=== PATIENT | male | born 1985 | race Caucasian/White ===

== ENCOUNTER → 2019-09-11 13:11 | Outpatient (POV) | payer OTHER, SELFPAY | PROVIDERS: Visit Provider Specialist | DX: M79.641 Pain in right hand (principal) | CPT/HCPCS: 95886; 95909 ==

== ENCOUNTER 2021-09-10 14:21 | Emergency (ER) | payer OTHER, SELFPAY ==
[2021-09-10] VITALS (11 sets, daily range): BP systolic 158–207; BP diastolic 96–143; PULSE 85–108; RESP 18–20; TEMP 36.8–37; O2SAT 94–100; BMI 38.0
--- NOTE | 2021-09-10 15:17 | CT_ITS ---
FINAL REPORT CLINICAL HISTORY: abdominal pain LLQ FINDINGS: CT OF THE ABDOMEN AND PELVIS WITH CONTRAST Axial CT images of the abdomen and pelvis were obtained after the administration of intravenous contrast. Coronal reformatted images were also obtained and reviewed.This study was performed with techniques to keep radiation doses as low as reasonably achievable (ALARA). Individualized dose reduction techniques using automated exposure control or adjustment of mA and/or kV according to the patient's size were employed. Abdomen: There are several nodules in the right lung base with the largest measuring up to 11 mm. The heart is normal in size. The liver demonstrates fatty infiltration. The spleen is enlarged up to 14 cm. No adrenal mass is present. The pancreas has an unremarkable appearance. There is significant atrophy and scarring of the left kidney. The aorta is normal in caliber. There is no free fluid or adenopathy. No mass or abnormal fluid collection is seen. Pelvis: The appendix is normal. The urinary bladder is unremarkable. No inflammatory process is seen. There is no evidence of mass or adenopathy. There is no evidence of bowel obstruction. IMPRESSION: Right lung base nodules up to 11 mm. Recommend six-month follow-up chest CT. Fatty infiltration of the liver. Splenomegaly. Reviewed, Interpreted and Dictated by Josue Veliz III, MD Transcribed by Boyd Sands Authenticated by Josue Veliz III, MD on 09/10/2021 04:28:13 PM [facility]
--- NOTE | 2021-09-10 15:17 | HMH.EDABDPAI ---
ED Disposition Clinical Impression: Abdominal pain Qualifiers: Abdominal location: left upper quadrant Qualified Code(s): R10.12 - Left upper quadrant pain Disposition: Home, Self-Care Condition on Discharge: Fair Instructions: DI for Acute Abdominal Pain Additional Instructions: Return to the emergency department for any new or concerning symptoms. Please follow-up with Dr. Snyder, he will also setting up an endoscopy for you. Referrals: Femi Snyder MD [Primary Care Provider] - - Critical Care Critical Care Time: No Attestation: On 09/10/21, the high probability of a clinically significant, sudden or life threatening deterioration of the following system(s) required my full and direct attention, intervention and personal management. The time I documented below is in addition to time spent performing reported procedures but includes the following listed in this critical care notation. Medical Decision Making - Medical Records Medical records reviewed: Yes: I reviewed the patient's medical records. - Luis Inquiry Pt receiving controlled substance: No Vital Signs: 09/10/21 15:05 09/10/21 16:00 09/10/21 16:45 Temperature 98.6 F Temperature Source Oral Pulse Rate 93 H 94 H Pulse Rate [Right Brachial] 98 H Respiratory Rate 18 Blood Pressure Blood Pressure [Right Arm] 193/100 H Blood Pressure Mean Blood Pressure Mean [Right Arm] 131 Blood Pressure Source Blood Pressure Source [Right Arm] Automatic Cuff Blood Pressure Position Blood Pressure Position [Right Arm] Sitting 02 Sat by Pulse Oximetry 95 98 98 Oxygen Delivery Method Room Air 09/10/21 17:00 09/10/21 17:30 09/10/21 18:00 Temperature Temperature Source Pulse Rate 85 92 H 108 H Pulse Rate [Right Brachial] Respiratory Rate 18 Blood Pressure 169/96 H 207/143 H 183/143 H Blood Pressure [Right Arm] Blood Pressure Mean 127 164 164 Blood Pressure Mean [Right Arm] Blood Pressure Source Blood Pressure Source [Right Arm] Blood Pressure Position Blood Pressure Position [Right Arm] 02 Sat by Pulse Oximetry 98 98 94 L Oxygen Delivery Method 09/10/21 18:21 09/10/21 18:30 09/10/21 18:31 Temperature Temperature Source Pulse Rate 104 H 94 H Pulse Rate [Right Brachial] Respiratory Rate 18 18 Blood Pressure 173/126 H 167/111 H 173/143 H Blood Pressure [Right Arm] Blood Pressure Mean 141 131 Blood Pressure Mean [Right Arm] Blood Pressure Source Blood Pressure Source [Right Arm] Blood Pressure Position Blood Pressure Position [Right Arm] 02 Sat by Pulse Oximetry 97 98 Oxygen Delivery Method 09/10/21 18:56 09/10/21 19:20 Temperature 98.2 F Temperature Source Oral Pulse Rate 86 86 Pulse Rate [Right Brachial] Respiratory Rate 18 20 Blood Pressure 158/111 H 158/103 H Blood Pressure [Right Arm] Blood Pressure Mean 136 Blood Pressure Mean [Right Arm] Blood Pressure Source Automatic Cuff Blood Pressure Source [Right Arm] Blood Pressure Position Sitting Blood Pressure Position [Right Arm] 02 Sat by Pulse Oximetry 98 Oxygen Delivery Method Room Air - Lab Data Lab results reviewed: Yes: I reviewed the patient's lab results. Lab Results 09/10/21 15:38: WBC 4.6 L, RBC 4.25 L, Hgb 14.5, Hct 43.1, MCV 101.3 H, MCH 34.0 H, MCHC 33.6, RDW 13.3, Plt Count 193, MPV 7.9, Neut % (Auto) 57.8, Lymph % (Auto) 30.5, Love % (Auto) 4.6, Eos % (Auto) 5.4, Baso % (Auto) 1.6, Neut # (Auto) 2.6, Lymph # (Auto) 1.4, Love # (Auto) 0.2, Eos # (Auto) 0.3, Baso # (Auto) 0.1 09/10/21 15:38: PT 10.9, INR 0.96 09/10/21 15:38: Sodium 136, Potassium 4.3, Chloride 104, Carbon Dioxide 22, Anion Gap 14.3, BUN 6 L, Creatinine 0.60 L, Estimated Creat Clear 295, Estimated GFR 154, Est GFR ( Amer) 187, Glucose 86, Calcium 8.9, Total Bilirubin 0.7, AST 89 H, ALT 62, Alkaline Phosphatase 64, Total Protein 6.9, Albumin 4.1, Globulin 2.8, Albumin/Globulin Ratio 1
[2021-09-10 15:47] LABS: Basophils # 0.1 K/mm3 (0-0.2); Basophils % 1.6 % (0.1-2.0); Eosinophils # 0.3 K/mm3 (0.0-0.4); Eosinophils % 5.4 % (0.1-12.0); Hematocrit 43.1 % (42.0-52.0); Hemoglobin 14.5 g/dL (14.1-18.0); Lymphocytes # 1.4 K/mm3 (0.7-4.5); Lymphocytes % 30.5 % (10-50); Mean Corpuscular HGB Conc 33.6 g/dL (31.8-35.4); Mean Corpuscular Volume 101.3 fl (80-94); Mean Platelet Volume 7.9 fl (7.4-10.4); Monocytes # 0.2 K/mm3 (0.1-1.0); Monocytes % 4.6 % (1.7-9.3); Neutrophils # 2.6 K/mm3 (1.8-7.8); Neutrophils % 57.8 % (37.0-80.0); Platelet Count 193 K/mm3 (142-424); Red Blood Count 4.25 M/mm3 (4.60-6.20); Red Cell Distribution Width 13.3 % (11.5-17.5); White Blood Count 4.6 K/mm3 (4.8-10.8)
[2021-09-10 15:59] LABS: INR 0.96 (0.9-1.1); Prothrombin Time 10.9 seconds (10.1-12.5)
[2021-09-10 16:05] LABS: Alanine Aminotransferase 62 U/L (12-78); Albumin Level 4.1 g/dl (3.5-5.0); Albumin/Globulin Ratio 1.5 (1.1-1.8); Alkaline Phosphatase 64 U/L (38-126); Anion Gap 14.3 mEq/L (5-15); Aspartate Amino Transferase 89 U/L (17-59); Bilirubin,Total 0.7 mg/dl (0.2-1.3); Blood Urea Nitrogen 6 mg/dl (9-20); Calcium 8.9 mg/dl (8.4-10.2); Carbon Dioxide 22 mmol/L (22.0-30.0); Chloride 104 mmol/L (98-107); Creatinine Clearance Estimated 295 mL/min (50-200); Estimated Glomerular Filt Rate 154 ml/min (>60); GFR (African American) 187 ML/MIN (>60); Globulin 2.8 g/dL (1.3-3.2); Glucose 86 mg/dl (74-100); Potassium 4.3 mmoL/L (3.5-5.1); Sodium 136 mmol/L (136-145); Total Protein,Serum 6.9 g/dl (6.3-8.2)
[2021-09-10 18:32] LABS: Acetaminophen < 10 ug/ml (10-30)
[2021-09-10 18:58] LABS: Monoscreen (Rapid) Negative (Negative)
--- NOTE | 2021-09-10 18:58 | PC.NURSE ---
b/p still 158/111 Dr Bernal aware , pt states B/P is always high and he has meds at home , he request to be d/c
== END 2021-09-10 19:24 | disposition home or self-care (01) ==
PROVIDERS: Emergency Provider Emergency Medicine; PCP Family Medicine
DX: R10.12 Left upper quadrant pain (principal); I10 Essential (primary) hypertension
CPT/HCPCS: 74177; 80053; 80329; 85025; 85610; 86318; 96374; 96375; 96376; 99282; J2405; Q9967

== ENCOUNTER → 2021-09-22 12:18 | Outpatient (CLI) | payer OTHER, SELFPAY ==
--- NOTE | 2021-09-22 12:23 | US_ITS ---
FINAL REPORT TECHNIQUE: Ultrasound images of the kidneys and bladder were obtained. CLINICAL HISTORY: LT FLANK PAIN-- recent ct showed atrophied kidney lt side FINDINGS: The right kidney measures 13.11 cm in length. There is no hydronephrosis or mass the right kidney. The left kidney measures 6 cm in length. There is significant atrophy with renal scarring. No flow is identified. Findings may be due to chronic left renal artery occlusion. IMPRESSION: Significant left renal atrophy without blood flow identified. Findings may be due to chronic left renal artery occlusion. Reviewed, Interpreted and Dictated by Josue Veliz III, MD Transcribed by Judy Smith Authenticated by Josue Veliz III, MD on 09/22/2021 01:57:17 PM [facility]
== END ==
PROVIDERS: PCP Family Medicine; Visit Provider Family Medicine
DX: R10.9 Unspecified abdominal pain (principal)
CPT/HCPCS: 76770

== ENCOUNTER → 2021-09-24 15:59 | Outpatient (CLI) | payer OTHER, SELFPAY | PROVIDERS: PCP Family Medicine; Visit Provider Surgery | DX: U07.1 COVID-19 (principal) | CPT/HCPCS: C9803; U0003; U0005 ==

== ENCOUNTER 2021-10-27 09:38 | Day surgery (SDC) | payer OTHER, SELFPAY ==
[2021-10-23 15:19] VITALS: BMI 35.9
[2021-10-27 09:48] VITALS: BP 160/114; PULSE 110; RESP 18; TEMP 36.7; O2SAT 98
[2021-10-27 10:25] VITALS: BP 150/103; PULSE 106; RESP 16; TEMP 36.8; O2SAT 99
--- NOTE | 2021-10-27 10:30 | P.OP_ITS ---
Date of procedure: 10/27/21 Pre-op Diagnosis:: Left flank pain, history of atrophic left kidney Post-op Diagnosis:: Same Procedure performed:: Cystoscopy Surgeon:: Prakash Hilliard MD Anesthesia: local Estimated blood loss (mL): 0 Clinical Note:: Patient is a 36-year-old white male with history of some intermittent left-sided flank pain that he experiences mainly at night. He states once he gets up to void the pain is relieved. CT scan has shown an atrophic left kidney with evidence of renal scarring. He presents for cystoscopic evaluation to evaluate for possible reflux. Operative findings:: Cystoscopy reveals no mucosal bladder abnormalities, trabeculation, cellules or diverticula. The ureteral orifices in their normal anatomic position. Clear efflux of urine was noted from the right orifice. No efflux of urine was noted from the left 1. Left ureteral orifice is in the normal location on the trigone and appears to be of relatively normal configuration and shape. The right ureteral orifice is abnormal with figuration and shape. Patient tolerated procedure well we discussed the findings. We discussed proceeding with a voidin g cystourethrogram to again verify that there is no reflux. Operative note:: Patient taken to the cystoscopy suite after informed consent was obtained. On the stretcher he was prepped and draped in the standard surgical fashion and 2% lidocaine placed into the urethra and clamped for 5 minutes. After 5 minutes the flexible cystoscope introduced into the urethral meatus. Passed to the prostatic urethra which showed no evidence of obstruction. The bladder was entered and examined in a systematic fashion. There was no evidence of mucosal abnormalities, stones, trabeculation or cellules. The ureteral orifices in their normal anatomic position on the trigone. Right ureteral orifice appeared to be of normal shape and configuration with clear efflux of urine. The left ureteral orifice was a little more open than the right but was of a slitlike configuration. The scope removed patient tolerated procedure well. We discussed the findings and we will proceed with a voiding cystourethrogram again assess for possible reflux even though the left ureteral orifice is not a classic appearing refluxing orifice. Condition: stable Disposition: same day Specimens:: None Complications:: None
[2021-10-27 10:35] VITALS: BP 150/103; PULSE 106; RESP 16; TEMP 36.8; O2SAT 99
== END 2021-10-27 10:35 | disposition home or self-care (01) ==
LOC: OUTP 09:39
PROVIDERS: PCP Family Medicine; Visit Provider Urology
PROC: (CPT 52000; principal; 2021-10-27 10:30)
DX: N26.1 Atrophy of kidney (terminal) (principal); R10.84 Generalized abdominal pain; J45.909 Unspecified asthma, uncomplicated; I10 Essential (primary) hypertension; Z79.899 Other long term (current) drug therapy; Z72.0 Tobacco use
CPT/HCPCS: 52000

== ENCOUNTER 2021-10-31 12:17 | Day surgery (SDC) | payer OTHER, SELFPAY ==
[2021-09-23 13:37] VITALS: BMI 34.4
[2021-10-28 10:08] VITALS: BMI 35.9
[2021-10-31 12:28] VITALS: BP 152/93; PULSE 124; RESP 18; TEMP 37.2; O2SAT 99
--- NOTE | 2021-10-31 12:45 | HMH.ANESCL ---
[facility] Anesthesia Checklist - Patient Identification Patient Identification: Arm Band - Structural Data Admitted From: Home Planned Operative Procedure/s: Colonoscopy Consent for Planned Operative Procedure(s) Verified: Yes - NPO Status Verified Time NPO: 09:00 (Prep) - Additional verifications Anesthesia Reactions: No Hx Blood Transfusions: No Blood Transfusion Reaction: No - Airway Assessment C-Spine Mobility Assessed: Yes TMJ Mobility Assessed: Yes Dentition: Poor Dentition - Neurological Assessment Level of Consciousness: Awake Hx Seizures: No Numbness or tingling in extremities: No - Anesthesia Plan Anesthesia Risk discussed: Yes Anesthesia Plan: Verified ASA Class: II Anesthesia Type: MAC [facility] History I have reviewed the patient's past medical history: Yes Medical History: Reports:: Asthma, Gastroesophageal Reflux Disease(GERD), Hypertension, Renal Disease Denies:: Cancer, Diabetes Mellitus Type 1, Diabetes Mellitus Type 2, Internal Pacemaker, MRSA, Seizures *Have you ever received a pneumonia vaccine?: No *Have you received a flu vaccine this season?: No Other Medical History: Denies: Blood Transfusion Reaction Anesthesia experience/problems:: None Laterality Cases: Right: Carpal Tunnel Release Other Surgeries: Yes: No Previous Surgery. No: Pacemaker Amputation: No Fractures: Yes (r ankle) - *Social History Last grade of school completed: High school graduate Smoking Status: Current every day smoker Tobacco Type: cigarettes # Packs/Day (cigarettes): 1 Alcohol Intake: never Alcohol Intake Frequency:: 3 or more drinks per day Substance Use Type: denies use *Occupational Status:: employed Housing: house Household Members: spouse, family *Travel in the last 8 weeks: None Family Hx:: Heart Attack
[2021-10-31 14:02] VITALS: O2SAT 99
--- NOTE | 2021-10-31 14:33 | HMH.SCOPE ---
- Procedure: Date: 10/31/21 Patient Date of :: 1985 Procedure Performed:: Total colonoscopy to terminal ileum with polypectomy by snare x2 Indications:: Patient is a 36-year-old male. He is scheduled for colonoscopy for rectal bleeding referred by Dr. Ayo Snyder. Couple months ago patient had been having some intermittent relatively fresh bright red blood per rectum. This did not occur with every bowel movement. He had presented to his primary care provider's office and was sent to the emergency department due to his symptoms. He was seen and evaluated in the emergency department on 09/10/2021. He did have a CT scan done which was negative for any acute GI pathology. He did have findings of right lung base nodules measuring up to 11 mm, fatty infiltration of the liver, splenomegaly. Radiology recommended 6-month follow-up CT scan of the chest. Patient is undergoing urology evaluation for atrophic left kidney with left-sided pain. He states that his rectal bleeding has resolved at this time. Performing Provider:: Josue Raines MD Referring Provider:: Ayo Snyder MD Sedation:: MAC sedation Procedure:: Patient was taken to endoscopy procedure room. He was positioned in left lateral decubitus position. Adequate intravenous sedation was achieved with anesthesia titration of propofol. Digital examination was performed which revealed minimal hemorrhoids. Variable stiffness Olympus colonoscope was inserted via the anus. Careful evaluation of the anal canal revealed some minor hemorrhoidal irritation. Colonoscope was advanced to the cecum. Colonic preparation was good and visualization was good. Ileocecal valve and appendiceal orifice were clearly identified. Colonoscope was advanced into the terminal ileum which appeared grossly normal. Colonoscope was slowly withdrawn through the colon with careful surveillance. Of note, in the cecum there was a sessile approximately 6 mm somewhat irregular polyp removed with cold snare. Colonoscope was withdrawn through the colon with careful surveillance. He did have a few scattered diverticuli. In the descending colon there was a small polyp removed with cold snare with residual polyp removed using biopsy forceps. Colonoscope was withdrawn to the rectum and retroflexion revealed minimal internal hemorrhoids. Colonoscope was withdrawn. Findings:: Sessile cecal polyp Small descending colon polyp Rare scattered diverticulosis Minimal hemorrhoids Recommendations:: Source of resolved rectal bleeding likely from hemorrhoids. Treat expectantly. Repeat colonoscopy 3 to 5 years pending pathology of the polyps. Complications:: None Estimated blood obtained (mL): 2
[2021-10-31 14:34] VITALS: BP 127/71; PULSE 96; RESP 14; TEMP 36.4; O2SAT 91
[2021-10-31 14:44] VITALS: BP 128/68; PULSE 98; RESP 16; O2SAT 96
[2021-10-31 14:54] VITALS: BP 121/74; PULSE 96; RESP 16; O2SAT 98
[2021-10-31 15:04] VITALS: BP 134/72; PULSE 63; RESP 18; O2SAT 99
== END 2021-10-31 15:04 | disposition home or self-care (01) ==
LOC: OUTP 12:17
PROVIDERS: PCP Family Medicine; Visit Provider Surgery
PROC: 0DJD8ZZ Inspection of Lower Intestinal Tract, Via Natural or Artificial Opening Endoscopic (ICD-10-PCS; CPT 45385; principal; 2021-10-31 13:30)
DX: K63.5 Polyp of colon (principal); K57.30 Diverticulosis of large intestine without perforation or abscess without bleeding; K64.9 Unspecified hemorrhoids; J45.909 Unspecified asthma, uncomplicated; K21.9 Gastro-esophageal reflux disease without esophagitis; I10 Essential (primary) hypertension; N28.9 Disorder of kidney and ureter, unspecified; Z72.0 Tobacco use; Z82.3 Family history of stroke; Z79.899 Other long term (current) drug therapy
CPT/HCPCS: 45385; J2704

== ENCOUNTER → 2021-11-03 08:37 | Outpatient (CLI) | payer OTHER, SELFPAY ==
--- NOTE | 2021-11-03 08:40 | FL_ITS ---
FINAL REPORT CLINICAL HISTORY: back pain..lt kidney not working...500 ml of cystografin to fill bladder..2.00 fluoro time FINDINGS: CYSTOGRAM HISTORY: Left renal failure. Back pain. PROCEDURE: 500 mL Contrast was introduced in a retrograde fashion into the urinary bladder by gravity drip. Spot and overhead films were obtained. FINDINGS: Director Voice film is normal. The urinary bladder distends appropriately. There is no reflux of contrast. No extravasation of contrast was identified to indicate leak. the patient was unable to void on the fluoroscopy table. FLUOROSCOPY TIME: 2.0 minutes. 7 radiographs were obtained. IMPRESSION: Normal cystogram. The patient was unable to void on the fluoroscopy table and therefore voiding urethrogram was not able to be obtained. Films reviewed , interpreted and dictated by Dr. Veliz. Transcribed by John Stephens PA-C. Reviewed, Interpreted and Dictated by Josue Veliz III, MD Transcribed by JOSE Horta Authenticated by Josue Veliz III, MD on 11/03/2021 11:12:21 AM [facility]
== END ==
PROVIDERS: PCP Family Medicine; Visit Provider Urology
DX: N26.1 Atrophy of kidney (terminal) (principal); M54.9 Dorsalgia, unspecified
CPT/HCPCS: 74455

== ENCOUNTER → 2021-12-01 12:55 | Outpatient (POV) | payer OTHER, SELFPAY ==
[2021-12-01 13:07] VITALS: BP 161/109; PULSE 112; RESP 18; TEMP 36.8; O2SAT 96; BMI 35.1
--- NOTE | 2021-12-01 13:42 | HMH.PMCON ---
Assessment and Plan (1) Left flank pain Status: Acute Category: Medical Code(s): R10.9 - Unspecified abdominal pain - Assessment and plan all Dx Assessment and Plan for all problems:: Patient is referred to us for management of left flank pain. Etiology is unknown at this point. Patient is tender to palpation around the lateral ninth and 10th rib. His recent CT shows splenomegaly and significant scarring and atrophy of the left kidney. Urology states that the pain may not be urologic in nature. I discussed with the patient that we can certainly try to do some intercostal nerve blocks at ninth and 10th ribs. However, this would only mask the pain. Something might be causing this pain specially with his age. We will refer the patient to general surgery for further evaluation. Patient is also being managed with tramadol and gabapentin that is prescribed an outside clinic. We will not continue these medications. Patient has been instructed to contact the clinic with any concerns before the next appointment. Dr. Patel has reviewed this note and agrees with this plan of care. This note was dictated using voice recognition software and make contain errors or omissions. HPI - Data of Consult Patient: new to practice Consult date: 12/01/21 Requesting Physician: JOSE Montes De Oca - Consult Narrative Reason for consult: Left flank pain History of present illness: Mr. Rey is a 36 year old male who presents today with worsening left flank pain/rib pain. Patient is referred by Dr. Hilliard. Thank you for the referral. Patient presents today with left flank pain/rib pain. Patient denies any recent falls or traumas. Patient states that he has been having this pain around his left flank since August. He has been complaining of intermittent diarrhea in the last 3 months. He had a colonoscopy recently that is positive for some polyps. He was referred to urology because his abdominal CT shows splenomegaly and significant atrophy and scarring of the left kidney. He states that he gets left sided flank pain whenever he is using the bathroom. Urology says that he does not think that the patient's pain is urologic in nature. He does not think doing a left nephrectomy would help with his discomfort. His recent ultrasound shows little to no blood flow to his left kidney. Pain might be related to renal artery occlusion. Patient states that he would notice some swelling on his left flank from time to time. Patient also has low back pain. He has been to [facility] for treatment of this. He had a spinal cord stimulator placed that helped him significantly. This was explanted because this was affecting his work. Patient rates his pain today as 6 out of 10. CC: JOSE Montes De Oca [facility] History I have reviewed the patient's past medical history: Yes Medical History: Reports:: Asthma, Gastroesophageal Reflux Disease(GERD), Hypertension, Renal Disease Denies:: Cancer, Diabetes Mellitus Type 1, Diabetes Mellitus Type 2, Internal Pacemaker, MRSA, Seizures *Have you ever received a pneumonia vaccine?: No *Have you received a flu vaccine this season?: No Other Medical History: Denies: Blood Transfusion Reaction Laterality Cases: Right: Carpal Tunnel Release Other Surgeries: Yes: No Previous Surgery. No: Pacemaker Amputation: No Fractures: Yes (r ankle) - *Social History Smoking Status: Current every day smoker Tobacco Type: cigarettes # Packs/Day (cigarettes): 1 Alcohol Intake: current Alcohol Intake Frequency:: a few times a week Substance Use Type: denies use *Occupational Status:: employed Housing: house Household Members: spouse *Travel in the last 8 weeks: None Family Hx:: Heart Attack Review of Systems - Review of Systems Review of Systems: General: No recent weight changes, no fever, no sleep disturbances Respiratory: No cough, no shortness of air, no recurring pulmonary infections Cardiovascular/peripheral vascular: No c
== END ==
PROVIDERS: Visit Provider Student in an Organized Health Care Education/Training Program
DX: R10.9 Unspecified abdominal pain (principal)
CPT/HCPCS: 99202; G0463

== ENCOUNTER → 2021-12-08 10:33 | Outpatient (POV) | payer OTHER, SELFPAY ==
[2021-12-08 10:46] VITALS: BP 178/112; PULSE 89; RESP 18; TEMP 36.7; O2SAT 100; BMI 35.9
--- NOTE | 2021-12-08 11:22 | HMH.PAINSOAP ---
[facility] Pain Management SOAP Note Subjective:: Patient is a pleasant 36-year-old male who presents today for follow-up. Patient has a chief complaint of left flank/left upper quadrant pain, etiology is unknown. His abdominal CT shows splenomegaly and significant atrophy and scarring of the left kidney. He was referred to urology for his kidney. Urology does not think that the patient's pain is urologic in nature. The urologist does not think that a left nephrectomy would help with his discomfort. Pain during bowel movements, no pain when he urinates. when I last saw this patient, I discussed with him that we can certainly do a peripheral nerve block but this would mask any underlying issues. I referred him to a general surgeon here in [place]. The general surgeon says that he does not manage any spleen issues. He states that his pain is about the same. He has tried tramadol and lidocaine patches with minimal relief of symptoms. He rates his pain a 6 out of [address] [facility] #[id number] with an active morphine equivalent of 10. Additionally, patient also has low back pain. He has been to [facility] for treatment in the past. He had a spinal cord stimulator placed that helped him significantly. This was explanted because it was affecting his work. Review of Systems: General: No recent weight changes, no fever, no sleep disturbances Respiratory: No cough, no shortness of air, no recurring pulmonary infections Cardiovascular/peripheral vascular: No chest pain, no palpitations, no edema, no shortness of breath Gastrointestinal: No new onset incontinence, normal bowel movements reported; left upper quadrant pain Genitourinary: No new onset incontinence Psychiatric: [Normal mood/affect] Neurological: [Denies weakness in extremities], [denies balance issues] Objective:: Physical Exam: General: Alert and oriented x3, no acute distress, pleasant and cooperative, [on room air] Lungs: Respirations even and unlabored, symmetrical chest expansion Eyes: PERRL GI: Tender to palpation around the left upper quadrant. There is a noticeable bulging just underneath the left 10th rib. There is no erythema. +BS Musculoskeletal: Flexion and extension of [] [spine] somewhat guarded secondary to pain, [antalgic gait noted] Neurological: Speech clear, no gross sensory deficit Assessment:: Left upper quadrant pain/left flank pain Splenomegaly Plan:: Patient presents today with no change of left upper quadrant pain. He was denied by the general surgeon here in town and wants to be referred to a different clinic. Patient has tried lidocaine patches and tramadol with minimal relief of symptoms. These medications do help with his low back pain. Denies any change in appetite. In the meantime, we will schedule the patient for an intercostal/peripheral nerve block just below the 10th rib. Risks and benefits of the procedure have been explained to the patient. Patient would like to proceed with the procedure. Patient has been instructed to contact the clinic with any concerns before the next appointment. Dr. Patel has reviewed this note and agrees with this plan of care. This note was dictated using voice recognition software and make contain errors or omissions. [facility] History Medical History: Reports:: Asthma, Gastroesophageal Reflux Disease(GERD), Hypertension, Renal Disease Denies:: Cancer, Diabetes Mellitus Type 1, Diabetes Mellitus Type 2, Internal Pacemaker, MRSA, Seizures *Have you ever received a pneumonia vaccine?: No *Have you received a flu vaccine this season?: No Other Medical History: Denies: Blood Transfusion Reaction Laterality Cases: Right: Carpal Tunnel Release Other Surgeries: Yes: No Previous Surgery. No: Pacemaker Amputation: No Fractures: Yes (r ankle) - *Social History Smoking Status: Current every day smoker Tobacco Type: cigarettes # Packs/Day (cigarettes): 1 Alcohol Intake: current Alcohol Intake Frequency:: a few times a
== END ==
PROVIDERS: Visit Provider Student in an Organized Health Care Education/Training Program
DX: R10.12 Left upper quadrant pain (principal); R16.1 Splenomegaly, not elsewhere classified
CPT/HCPCS: 99212; G0463

== ENCOUNTER 2021-12-12 08:52 | Day surgery (SDC) | payer OTHER, SELFPAY ==
[2021-12-12 08:57] VITALS: BP 154/102; BP 162/89; PULSE 82; PULSE 84; RESP 18; O2SAT 97
[2021-12-12 09:01] VITALS: BP 163/98; PULSE 87; RESP 18; TEMP 36.8; O2SAT 99; BMI 35.9
--- NOTE | 2021-12-12 09:16 | HMH.PMPROC ---
- Procedure Date: 12/12/21 Time: 09:16 Anesthesiologist:: Jae Benjamin CRNA Complications:: None Pre-procedure Diagnosis:: Splenomegaly. Left kidney disease. Post-procedure Diagnosis:: Same Indications for Procedure:: This patient is a pleasant 36-year-old who has been deeply involved with urology over the last 3 months due to left kidney function declining and splenomegaly. He is having severe left flank pain. This is secondary to his splenomegaly. Today presents to our clinic for a field block over the left flank area where he is having some neuropathic type pain. He has tried some lidocaine patches with minimal relief. He is taking tramadol for pain at times. He will follow-up in [place] with urology next month. Procedure Details:: Details of the procedure were explained to the patient. The patient was taken to the procedure room placed in the sitting position on the fluoroscopy table. The area over the left flank was cleaned using chlorhexidine as a cleansing solution. At this time using a 1-1/2 inch 25-gauge needle in a circular fashion covering about 15 to 20 cm of the left flank 1 to 2 cc injections were given of an injection containing 0.25% Marcaine and 1% lidocaine with 40 mg of Depo-Medrol and 12 cc. She tolerated the procedure without difficulty. There were no complications. Plan and Disposition:: Patient was discharged home without incident. He will return to see us on an as-needed basis.
[2021-12-12 09:22] VITALS: BP 141/98; PULSE 77; RESP 20; O2SAT 97
== END 2021-12-12 09:23 | disposition home or self-care (01) ==
LOC: SC.PAINP 08:53
PROVIDERS: PCP Family Medicine; Visit Provider Nurse Anesthetist, Certified Registered
DX: G62.9 Polyneuropathy, unspecified (principal); R16.1 Splenomegaly, not elsewhere classified; N28.9 Disorder of kidney and ureter, unspecified; J45.909 Unspecified asthma, uncomplicated; K21.9 Gastro-esophageal reflux disease without esophagitis; E78.5 Hyperlipidemia, unspecified; Z72.0 Tobacco use
CPT/HCPCS: 64450; J1040

== ENCOUNTER → 2021-12-23 13:40 | Outpatient (POV) | payer OTHER, SELFPAY | PROVIDERS: Visit Provider Dermatology | DX: Z00.00 Encounter for general adult medical examination without abnormal findings (principal) ==

== ENCOUNTER → 2022-01-09 13:40 | Outpatient (CLI) | payer OTHER, SELFPAY | PROVIDERS: PCP Family Medicine; Visit Provider Family Medicine | DX: Z20.822 Contact with and (suspected) exposure to COVID-19 (principal) | CPT/HCPCS: C9803; U0003; U0005 ==

== ENCOUNTER → 2022-01-12 13:26 | Outpatient (POV) | payer OTHER, SELFPAY ==
[2022-01-12 13:39] VITALS: BP 175/108; PULSE 88; RESP 18; TEMP 36.9; O2SAT 98; BMI 35.9
--- NOTE | 2022-01-12 15:43 | HMH.PAINSOAP ---
[facility] Pain Management SOAP Note Subjective:: Patient is a pleasant 36-year-old male who presents today for follow-up after a peripheral block around the left flank on December 12, 2021. We have been managing this patient for left flank/left upper quadrant pain, etiology is unknown. After his procedure, patient had significant relief of 80 to 90%. He does still have some pain around his left back. When this patient was referred to us, he was having significant left flank/left upper quadrant pain. His abdominal CT shows splenomegaly and significant atrophy and scarring of the left kidney. He was referred to urology for his kidney. Urology does not think that the patient's pain is urologic in nature. The urologist does not think that a left nephrectomy would help with his discomfort. Patient does have pain during bowel movements but no pain when he urinates. I referred the patient to a general surgeon here in [place] for possible evaluation of his splenomegaly. I thought that the patient may need a splenectomy since there is an obvious bulging of his spleen. He was told that the general surgery here in [place] does not do any splenectomy. I then referred the patient to [facility] for further evaluation. Today, patient states that he was referred to another urologist who may want to proceed with nephrectomy. He does have some CVA tenderness. Of note, patient has tried tramadol and lidocaine patches with minimal relief of symptoms. He rates his pain today as 5 out of 10. Additionally, patient also has low back pain. He has been to [facility] for treatment in the past. He had a spinal cord stimulator placed that helped him significantly. This was then explanted because it was affecting his work. Review of Systems: General: No recent weight changes, no fever, no sleep disturbances Respiratory: No cough, no shortness of air, no recurring pulmonary infections Cardiovascular/peripheral vascular: No chest pain, no palpitations, no edema, no shortness of breath Gastrointestinal: No new onset incontinence, normal bowel movements reported Genitourinary: No new onset incontinence Musculoskeletal: Low back pain Psychiatric: [Normal mood/affect] Neurological: [Denies weakness in extremities], [denies balance issues] Objective:: Physical Exam: General: Alert and oriented x3, no acute distress, pleasant and cooperative Lungs: Respirations even and unlabored, symmetrical chest expansion Eyes: PERRL GI: Patient still has some bulging around his left upper quadrant. This is not tender to palpation. Musculoskeletal: Flexion and extension of lumbar [spine] somewhat guarded secondary to pain, [antalgic gait noted]; tender to palpation around the left sided thoracic paraspinous. Neurological: Speech clear, no gross sensory deficit Assessment:: Splenomegaly, left upper quadrant pain/left flank pain Plan:: Patient had significant relief after the peripheral blocks around the left upper quadrant/left flank area. Patient is following up with urology for possible nephrectomy. We will follow-up with this patient as needed. Patient has been instructed to contact the clinic with any concerns before the next appointment. Dr. Patel has reviewed this note and agrees with this plan of care. This note was dictated using voice recognition software and make contain errors or omissions. [facility] History Medical History: Reports:: Asthma, Gastroesophageal Reflux Disease(GERD), Hyperlipidemia, Hypertension, Renal Disease Denies:: Cancer, Diabetes Mellitus Type 1, Diabetes Mellitus Type 2, Internal Pacemaker, MRSA, Seizures *Have you ever received a pneumonia vaccine?: No *Have you received a flu vaccine this season?: No Other Medical History: Denies: Blood Transfusion Reaction Laterality Cases: Right: Carpal Tunnel Release Other Surgeries: Yes: No Previous Surgery. No: Pacemaker Amputation: No Fractures: Yes (r ankle) - *Social History Smoking Status: Current
== END ==
PROVIDERS: Visit Provider Student in an Organized Health Care Education/Training Program
DX: R16.1 Splenomegaly, not elsewhere classified (principal)
CPT/HCPCS: 99212; G0463

== ENCOUNTER → 2022-06-25 13:29 | Outpatient (CLI) | payer OTHER, SELFPAY ==
--- NOTE | 2022-06-25 13:32 | XR_ITS ---
FINAL REPORT CLINICAL HISTORY: RT ELBOW PAIN FINDINGS: RIGHT ELBOW 3 views were obtained. There is no acute fracture or dislocation. There is no joint effusion. The joint spaces are intact. There is no soft tissue abnormality. IMPRESSION: No acute process. Reviewed, Interpreted and Dictated by Josue Veliz III, MD Transcribed by Boyd Sands Authenticated and [facility]
== END ==
PROVIDERS: PCP Family Medicine; Visit Provider Family Medicine
DX: M25.521 Pain in right elbow (principal)
CPT/HCPCS: 73080

== ENCOUNTER → 2022-06-30 16:36 | Outpatient (CLI) | payer OTHER, SELFPAY | PROVIDERS: PCP Family Medicine; Visit Provider Family Medicine | DX: G47.33 Obstructive sleep apnea (adult) (pediatric) (principal); R06.83 Snoring; R53.83 Other fatigue | CPT/HCPCS: 95806 ==

== ENCOUNTER → 2022-12-23 09:17 | Outpatient (CLI) | payer OTHER, SELFPAY ==
--- NOTE | 2022-12-23 09:29 | US_ITS ---
FINAL REPORT TECHNIQUE: Ultrasound images of the kidneys and bladder were obtained. CLINICAL HISTORY: RENAL ATROPHY COMPARISON: 09/22/2021 FINDINGS: The right kidney is enlarged and measures 13.6 cm in length. The left kidney is atrophic and measures 5.2 cm in length. There is a 1.2 cm hypoechoic focus within the left kidney which is indeterminate and may represent complex cyst. No hydronephrosis bilaterally. IMPRESSION: Atrophic left kidney with compensatory hypertrophy of the right kidney. 1.2 cm indeterminate nodule left kidney. Pre and post infusion CT may be of value. Reviewed, Interpreted and Dictated by Dirk Guo MD Transcribed by Aide Boss Authenticated and [facility]
== END ==
PROVIDERS: PCP Specialist; Visit Provider Family Medicine
DX: N26.1 Atrophy of kidney (terminal) (principal)
CPT/HCPCS: 76770

== ENCOUNTER → 2023-04-07 13:44 | Outpatient (POV) | payer OTHER, SELFPAY ==
[2023-04-07 15:29] VITALS: BP 152/96; PULSE 102; RESP 20; O2SAT 95; BMI 33.5
--- NOTE | 2023-04-07 16:42 | EXP.PAIN.OV ---
HPI Data of Consult Patient: new to practice Consult date: 04/07/23 Requesting Physician: Christine Valentine APRN Primary Care Provider: Femi Snyder MD Consult Narrative Reason for consult: Low back pain left-sided History of present illness: Mr. Rey is a 37 year old male who presents today as a new patient. He is a referral from Dr. Snyder's office. Today he rates his pain a 5 out of 10. Patient states he has been experiencing more pain in his low back along the left side. Patient was previously a patient of ours last year around December where he did get injections into the left abdomen and that he had resolution of his pain at this area. Patient states that the pain has since moved further back around his ribs. He does describe this as a sharp knocking you down sensation with bilateral leg numbness that its been going on for years. Patient does state that he also has left hip pain. He says that the main reason he came to us today was to see about the left-sided rib/low back pain because it wakes him up in the middle of the night and causes significant vomiting and pain. Patient has recently had a left abdominal ultrasound which did have findings concerning on his kidneys. He states he is being sent back to Dr. Mullen and has a follow-up appointment with his primary care doctor on Wednesday. Patient does use [id number] medications such as Tylenol along with tramadol 50 mg twice a day and gabapentin 800 mg 3 times a day from Dr. Snyder's office. Patient denies any side effects from this medication however states it only takes the edge off. Patient also uses Flector patches with no additional relief. Patient has tried heat and ice. He states he will not do physical therapy or chiropractor therapy due to worsening pain. He denies any previous lumbar imaging his Luis is [phone]. Its been reviewed and appropriate. CC: Christine Valentine APRN [facility] Disclaimer: The information contained in this section may have been updated after the patient was seen, as this information can be updated by other users. Medical History (Updated 04/07/23 @ 16:49 by Christine Valentine APRN) Asthma Closed right ankle fracture HTN (hypertension) Right carpal tunnel syndrome Scheuermanns disease Family History (Updated 04/07/23 @ 14:30 by Staci Pradhan RN) Other Heart problem Social History (Updated 04/07/23 @ 14:31 by Staci Pradhan RN) Smoking Status: Current every day smoker tobacco type: cigarettes packs per day: 1 alcohol intake: current substance use type: denies use current occupational status: other Travel in the last 8 weeks: None household members: spouse housing: house marital status: current occupation: its current occupational exposures/hazards: No caffeine: Yes Review of Systems Review of Systems Review of systems:: pertinent systems reviewed and negative unless documented below Review of systems (narrative): Review of Systems: General: No recent weight changes, no fever, no sleep disturbances Respiratory: No cough, no shortness of air, no recurring pulmonary infections Cardiovascular/peripheral vascular: No chest pain, no palpitations, no edema, no shortness of breath Gastrointestinal: No new onset incontinence, normal bowel movements reported Genitourinary: No new onset incontinence Musculoskeletal: Left-sided low back pain Psychiatric: [Normal mood/affect] Neurological: [Denies weakness in extremities], [denies balance issues] Meds Home Medications and Allergies Home Medications Medication Instructions Recorded Confirmed Type gabapentin 800 mg tablet 800 mg PO TID Pain 09/10/21 09/03/22 History lansoprazole 30 mg delayed 30 mg PO DAILY GERD 09/10/21 09/03/22 History release,disintegrating tablet triamterene 37.5 1 each PO DAILY Blood pressure 09/10/21 09/03/22 History mg-hydrochlorothiazide 25 mg tablet ezetimibe 10 mg tablet 10 mg PO DAILY * 10/13/21 09/03/22 History
== END ==
PROVIDERS: PCP Family Medicine; Visit Provider Nurse Practitioner Family
DX: M54.50 Low back pain, unspecified (principal); G89.29 Other chronic pain; R10.9 Unspecified abdominal pain; R20.0 Anesthesia of skin; M79.18 Myalgia, other site
CPT/HCPCS: 99202; G0463

== ENCOUNTER → 2023-04-08 12:04 | Outpatient (CLI) | payer OTHER, SELFPAY ==
--- NOTE | 2023-04-08 12:08 | XR_ITS ---
FINAL REPORT CLINICAL HISTORY: LOW BACK PAIN COMPARISON: None FINDINGS: 5 views of the lumbar spine were obtained. There is no evidence of fracture or dislocation. The vertebral alignment is normal. Disc spaces are preserved. No paraspinous soft tissue abnormalities identified. IMPRESSION: No acute bony abnormality. Reviewed, Interpreted and Dictated by Josue Veliz III, MD Transcribed by Arlyn Jimenez Authenticated and [facility]
== END ==
PROVIDERS: PCP Family Medicine; Visit Provider Nurse Practitioner Family
DX: M54.50 Low back pain, unspecified (principal)
CPT/HCPCS: 72110

== ENCOUNTER 2023-04-20 10:29 | Day surgery (SDC) | payer OTHER, SELFPAY ==
[2023-04-20 10:46] VITALS: BP 180/100; PULSE 94; RESP 18; TEMP 36.6; O2SAT 95; BMI 34.4
[2023-04-20 10:50] VITALS: BP 175/100; PULSE 95; RESP 18; O2SAT 99
[2023-04-20 10:52] VITALS: BP 175/100; PULSE 95; RESP 18; O2SAT 99
--- NOTE | 2023-04-20 11:01 | EXP.PAIN.PRO ---
Procedure Date: 04/20/23 Time: 10:40 Anesthesiologist:: Jae Benjamin CRNA Complications:: None Pre-procedure Diagnosis:: Left lower posterior lateral thoracolumbar pain. Post-procedure Diagnosis:: Same Indications for Procedure:: Patient is a pleasant 37-year-old male that comes our clinic today for pain he has been having in the left lower thoracolumbar region. He describes the pain as constant, dull, aching. Pain appears to be myofascial in nature. However, could be emanating from superior margin of the left sacroiliac joint? I will proceed with trigger point injections into the left posterior lateral thoracolumbar area. Procedure Details:: Details of the procedure explained to the patient. The patient taken the procedure room placed in the sitting position. The area over the left lower posterior lateral thoracolumbar area was cleansed using chlorhexidine as a cleansing solution. Using a 25-gauge inch and half needle trigger point injections were given in a fanning fashion after negative aspiration covering the left lower lateral thoracolumbar area. 10 cc of a solution containing 0.25% Marcaine +1% lidocaine and 40 mg of Depo-Medrol was used. Patient tolerated the procedure without difficulty. No complications. Plan and Disposition:: I discussed in detail with the patient regarding pain could be coming from left sacroiliac joint. We will see how the trigger point injections do for him. Depending on effectiveness we will potentially pursue left superior sacroiliac joint injection. Patient was discharged without incident.
[2023-04-20 11:10] VITALS: BP 168/100; PULSE 89; RESP 20; O2SAT 95
== END 2023-04-20 11:10 | disposition home or self-care (01) ==
PROVIDERS: PCP Family Medicine; Visit Provider Nurse Anesthetist, Certified Registered
DX: M79.18 Myalgia, other site (principal); M54.6 Pain in thoracic spine
CPT/HCPCS: 20552; J1040

== ENCOUNTER → 2023-05-20 15:17 | Outpatient (POV) | payer OTHER, SELFPAY ==
--- NOTE | 2023-05-20 15:43 | EXP.PAIN.SOA ---
[facility] Pain Management SOAP Note Subjective:: Patient is a pleasant 38-year-old male who presents today for follow-up of trigger point injections of his left lower posterior lateral thoracolumbar region on 04/20/2023. We are currently treating the patient for low back pain, abdominal pain. Today he rates his pain a 6 out of 10. Patient denies any new trauma or injury. He denies any change location or type of pain he experiences. He does state that the injection helped some but not significantly enough. He does state that it aggravated his abdominal pain. He states he continues to have a achy sensation with occasional sharp pains from his left low back radiating to his abdomen. Patient does also have significant kidney findings that he is scheduled to see Dr. Bello Barger next week. At our last visit we did prescribe compounding cream however he states he did not notice any improvement. He is prescribed gabapentin 800 mg 3 times a day and tramadol 50 mg twice a day from his primary care provider. He denies any side effects from these medications. His Luis is [phone]. Its been reviewed and appropriate. Review of Systems: General: No recent weight changes, no fever, no sleep disturbances Respiratory: No cough, no shortness of air, no recurring pulmonary infections Cardiovascular/peripheral vascular: No chest pain, no palpitations, no edema, no shortness of breath Gastrointestinal: No new onset incontinence, normal bowel movements reported Genitourinary: No new onset incontinence Musculoskeletal: Left low back pain, abdominal pain Psychiatric: [Normal mood/affect] Neurological: [Denies weakness in extremities], [denies balance issues] Objective:: Physical Exam: General: Alert and oriented x3, no acute distress, pleasant and cooperative Lungs: Respirations even and unlabored, symmetrical chest expansion Eyes: PERRL Musculoskeletal: Flexion and extension of lumbar [spine] somewhat guarded secondary to pain Neurological: Speech clear, no gross sensory deficit Assessment:: Low back pain, abdominal pain left-sided Plan:: Patient continues to experience low back pain and abdominal pain along his left side. Patient had limited range of motion of his lumbar spine during today's visit. I have reviewed over the x-ray imaging findings of his lumbar spine and discussed regarding proceeding forward with ordering an MRI. At this time the patient would like to see Dr. Bello ko first and follow-up with our office after. Patient will return to clinic in 2 weeks for reevaluation of symptoms and plan of care. Patient has been instructed to contact the clinic with any concerns before the next appointment. Dr. Patel has reviewed this note and agrees with this plan of care. This note was dictated using voice recognition software and make contain errors or omissions. [facility] Disclaimer: The information contained in this section may have been updated after the patient was seen, as this information can be updated by other users. Medical History Asthma Closed right ankle fracture HTN (hypertension) Right carpal tunnel syndrome Scheuermanns disease Family History Other Heart problem Social History Smoking Status: Current every day smoker tobacco type: cigarettes packs per day: 1 alcohol intake: current substance use type: denies use current occupational status: other Travel in the last 8 weeks: None household members: spouse housing: house marital status: current occupation: its current occupational exposures/hazards: No caffeine: Yes
[2023-05-20 16:01] VITALS: BP 170/91; PULSE 100; RESP 18; O2SAT 96; BMI 35.2
== END ==
PROVIDERS: PCP Family Medicine; Visit Provider Nurse Practitioner Family
DX: M54.50 Low back pain, unspecified (principal); R10.9 Unspecified abdominal pain
CPT/HCPCS: 99212; G0463

== ENCOUNTER 2024-06-05 16:24 | Outpatient (CLI) | payer OTHER, SELFPAY ==
--- NOTE | 2024-06-05 16:28 | XR_ITS ---
PROCEDURE INFORMATION: Exam: XR Left Knee Exam date and time: 06/05/2024 4:30 PM Age: 39 years old Clinical indication: Pain; Knee; Left; Additional info: Lt knee pain. States hit in left knee with weighted softball TECHNIQUE: Imaging protocol: Radiologic exam of the left knee. Views: 3 views. COMPARISON: No relevant prior studies available. FINDINGS: Bones/joints: Normal. Soft tissues: Normal. IMPRESSION: No acute findings.
== END 2024-06-05 23:59 | disposition home or self-care (01) ==
LOC: RAD 16:25
PROVIDERS: PCP Family Medicine; Visit Provider Nurse Practitioner Family
DX: M25.562 Pain in left knee (principal)
CPT/HCPCS: 73562

== ENCOUNTER 2024-06-23 13:43 | Outpatient (CLI) | payer OTHER, SELFPAY ==
--- NOTE | 2024-06-23 13:48 | MR_ITS ---
FINAL REPORT CLINICAL HISTORY: left knee pain , hit with weighted softball in the medial side of patella FINDINGS: On the sagittal images, anterior and posterior cruciate ligaments appear intact. Quadriceps and patellar tendons appear intact. On the parasagittal images, there is some mild increase signal identified in the posterior horn of the medial meniscus. However, no discrete linear full-thickness tear is identified. Abnormal marrow edema is identified within the medial aspect of the medial femoral condyle. This marrow edema is well-seen on the coronal images 18 through 21 of series 8. Medial and lateral collateral ligaments appear intact. Medial and lateral retinacula appear intact. IMPRESSION: 1. Osseous contusion in the medial aspect of the medial femoral condyle, as described. 2. Intrasubstance degeneration posterior horn medial meniscus, without evidence of full-thickness meniscal tear. Authenticated and [facility]
== END 2024-06-23 23:59 | disposition home or self-care (01) ==
LOC: RAD 13:43
PROVIDERS: PCP Family Medicine; Visit Provider Nurse Practitioner Family
DX: M25.562 Pain in left knee (principal)
CPT/HCPCS: 73721